=== PATIENT | female | born 1995 | race Caucasian/White ===

== ENCOUNTER 2018-03-29 07:34 | Emergency (ER) | payer OTHER ==
[~2018-03-29] VITALS: Ht 157.5 cm; Wt 52.6 kg
[2018-03-29 07:47] VITALS: Ht 157.5 cm; Wt 52.6 kg
[2018-03-29 08:19] LABS: BASOPHIL % 0.5 % (0-2); PLATELET COUNT 240 x10^3mcL (130-400); RED CELL DISTRIBUTION WIDTH 13.7 % (11.5-14.5)
[2018-03-29 10:20] VITALS: BP 114/56
[2018-03-29 15:03] LABS: UA SPECIFIC GRAVITY 1.015 (1.005-1.035); microscopic required? YES; urine erythrocyte NEGATIVE (NEGATIVE)
== END 2018-03-29 10:20 | disposition home or self-care (01) ==
LOC: ED 07:34
PROVIDERS: Emergency Medicine
DX: O23.41 Unspecified infection of urinary tract in pregnancy, first trimester (principal); Z3A.01 Less than 8 weeks gestation of pregnancy
CPT/HCPCS: J0696; J2765; J7030

== ENCOUNTER 2018-05-16 17:37 | Emergency (ER) | payer OTHER ==
[~2018-05-16] VITALS: Ht 157.5 cm; Wt 52.6 kg
[2018-05-16 17:49] VITALS: Ht 157.5 cm; Wt 52.6 kg
[2018-05-16 20:54] VITALS: BP 101/68
== END 2018-05-16 20:54 | disposition home or self-care (01) ==
LOC: ED 17:37
DX: O23.42 Unspecified infection of urinary tract in pregnancy, second trimester (principal); Z3A.14 14 weeks gestation of pregnancy
CPT/HCPCS: Q0092

== ENCOUNTER 2019-08-20 10:20 | Emergency (ER) | payer OTHER ==
[~2019-08-20] VITALS: Ht 157.5 cm; Wt 55.3 kg
[2019-08-20 10:24] VITALS: Ht 157.5 cm; Wt 55.3 kg
[2019-08-20 14:01] VITALS: BP 124/71
== END 2019-08-20 14:01 | disposition home or self-care (01) ==
LOC: ED 10:20
DX: S80.02XA Contusion of left knee, initial encounter (principal); S20.212A Contusion of left front wall of thorax, initial encounter; M54.2 Cervicalgia; V43.52XA Car driver injured in collision with other type car in traffic accident, initial encounter; Y93.I9 Activity, other involving external motion; Y92.488 Other paved roadways as the place of occurrence of the external cause; Y99.8 Other external cause status
CPT/HCPCS: Q0092